=== PATIENT | female | born 1965 | race Caucasian/White ===

== ENCOUNTER 2023-01-05 10:15 | Outpatient (RCR) | payer OTHER, BC, SELFPAY | END 2023-05-05 23:59 | disposition home or self-care (01) | PROVIDERS: Visit Provider Student in an Organized Health Care Education/Training Program | DX: M77.11 Lateral epicondylitis, right elbow (principal); Z51.89 Encounter for other specified aftercare | CPT/HCPCS: 97033; 97035; 97110; 97140; 97165; 97535; X5282 ==

== ENCOUNTER 2023-09-10 09:59 | Outpatient (CLI) | payer BC, SELFPAY ==
--- NOTE | 2023-09-10 10:15 | CRLHL7_ITS ---
For Patients: As a result of the Century Cures Act, medical imaging exams and procedure reports are released immediately into your electronic medical record. You may view this report before your referring provider. If you have questions, please contact your health care provider. ULTRASOUND-GUIDED LEFT BREAST BIOPSY AND POST-BIOPSY DIGITAL MAMMOGRAM FOR BIOPSY MARKER PLACEMENT CLINICAL HISTORY: Indeterminate nodule. COMPARISON STUDIES: 09/01/2023 TECHNIQUE: Real-time ultrasound with image documentation was used for targeting the breast lesion. Core biopsy specimens were obtained using an automated gun with an 18-gauge biopsy needle. Post-biopsy CC and ML digital mammograms were obtained to document position of the biopsy marker. CONSENT and TIME OUT: The procedure, risks, and alternatives were explained to the patient and a consent was signed. [place] Protocol was followed including pre-procedure verification that relevant information/documentation was available, reviewed and properly matched to the patient; consent accurate and complete; and equipment and supplies available. Time Out was conducted just prior to starting procedure to verify the four required elements: patient identity, correct side/site marked (if applicable), procedure, relevant images/results properly labeled and displayed (if applicable). PROCEDURE: The patient was positioned supine on the ultrasound table. The breast was prepped with ChloraPrep. 6 cc of 1% lidocaine used for local anesthesia. Core samples were obtained. A sterile metal biopsy clip was placed percutaneously to giselle the lesion position within the breast. The specimens were placed in 10% formalin and sent to the pathology department. Pressure was held on the biopsy site until all bleeding subsided. The skin incision was closed with Steri-Strips. An ice pack was positioned over the biopsy site. Post-biopsy instructions were reviewed with the patient, and a written copy was given to her. LATERALITY: LEFT breast LESION: Circumscribed lobular hypoechoic solid nodule measuring 9 x 7 x 8 mm at 5 o`clock, 9 cm from the nipple. SUSPICION FOR MALIGNANCY: Intermediate NUMBER OF SAMPLES: 5 BIOPSY CLIP SHAPE: Oval-shaped PROXIMITY OF CLIP TO TARGET: Within the lesion IMPRESSION: Ultrasound-guided LEFT breast biopsy. When the pathology report is available, an addendum to this report will be made. ACR not applicable. Dictated by Filipe Harper MD @ 09/10/2023 11:34:55 AM [email or web address] RD/Dictated by: Filipe Harper MD @ 09/10/2023 11:34:00 AM (Electronically Signed)
--- NOTE | 2023-09-10 10:45 | CRLHL7_ITS ---
For Patients: As a result of the Century Cures Act, medical imaging exams and procedure reports are released immediately into your electronic medical record. You may view this report before your referring provider. If you have questions, please contact your health care provider. PLEASE SEE LEFT BREAST ULTRASOUND-GUIDED BIOPSY OF SAME DAY. [email or web address] RD/Dictated by: Filipe Harper MD @ 09/10/2023 11:34:00 AM (Electronically Signed)
== END 2023-09-10 10:00 | disposition home or self-care (01) ==
LOC: US 10:01
PROVIDERS: Visit Provider Family Medicine
DX: N63.20 Unspecified lump in the left breast, unspecified quadrant (principal); C50.912 Malignant neoplasm of unspecified site of left female breast; R92.8 Other abnormal and inconclusive findings on diagnostic imaging of breast
CPT/HCPCS: 19083; 77065; 88305; 88341; 88342; 88360; A4648; A4649

== ENCOUNTER 2023-10-12 06:42 | Day surgery (SDC) | payer BC, SELFPAY ==
[2023-10-12] VITALS (13 sets, daily range): BP systolic 124–153; BP diastolic 80–100; PULSE 69–80; RESP 10–16; TEMP 36.3–37.6; O2SAT 92–97; BMI 26.6
--- OUTSIDE RECORDS SUMMARY | 2023-10-12 06:46 | XMS_ITS | Clinical Summary ---
Author Name Unknown Organization [facility] Address [place], [place] [address] Care Team Providers Care Master Rigger Name Role Phone Yane Cline Primary Care Provider [phone] Allergies Active Allergy Reactions Criticality Noted Date Comments Chlorpheniramine-Phenylpropan Runny Nose,Itching 03/24/2019 Mirabegron Angioedema High 10/12/2018 Medications Medication Sig Dispensed Refills Start Date End Date Status fluticasone (50 mcg per actuation) nasal solution (FLONASE)Indications: Seasonal allergies Inhale 1 [place] into both nostrils once daily. Non-alcohol based 1 Bottle 3 04/03/2015 Active cetirizine (ZYRTEC) 10 mg tabletIndications:Sea tee allergic rhinitis, unspecified chronicity, unspecified trigger Take 1 tablet by mouth once daily. 90 tablet 1 10/13/2017 Active erythromycin ophthalmic ointment 0.5% 0 06/16/2022 Active Xiidra 5 % dpet 0 06/17/2022 Active chlorthalidone (HYGROTON) 50 mg tabletIndications:HTN (hypertension) Take 1 Tablet (50 mg) by mouth once daily. 90 Tablet 3 06/25/2023 Active metroNIDAZOLE (METROGEL) 0.75 % gelIndications:Rosace a Apply topically to affected area(s) two times daily. 45 g 3 06/25/2023 Active sulfacetamide, acne, 10 % suspIndications:Rosac ea Apply topically to affected area(s) at bedtime. 118 mL 5 06/25/2023 Active carbamide peroxide (DEBROX) 6.5 % otic solutionIndications:B ilateral impacted cerumen Place 5 Drops into both ears two times daily. 15 mL 0 06/25/2023 Active potassium chloride (K-TAB) 20 mEq extended-release tabletIndications:Hyp okalemia Take 1 Tablet (20 mEq) by mouth once daily with a meal. 90 Tablet 3 06/29/2023 Active albuterol HFA (PRO-AIR; VENTOLIN; PROVENTIL) 90 mcg/actuation inhalerIndications:Mi ld intermittent asthma without complication Inhale 1-2 Puffs by mouth every 4 hours if needed for Shortness Of Breath. 18 g 11 08/25/2023 Active Active Problems Problem Noted Date Diagnosed Date Prediabetes 06/29/2023 Mixed hyperlipidemia 06/29/2023 Adenomatous colon polyp 02/21/2018 Overview: Colonoscopy 02/2018 polyp, repeat in 5 years Colonoscopy 05/2023 TA, repeat in 7 years Mixed urge and stress incontinence 09/18/2015 Allergic rhinitis, cause unspecified 06/22/2006 Unspecified asthma(493.90) 06/22/2006 Rosacea 06/22/2006 Vitamin D deficiency Urinary, incontinence, stress female Hypertension Anemia Iron deficiency Uterine fibroid Overview: 12 cm Dry eyes Encounters Date Type Department Care Team Description 10/04/2023 11:10 AM TELEVISION NEWS VIDEO EDITOR Preop Visit [facility] [address] [place] [address] Yane Cline PA Preoperative Exam (Dr[facility]- wire localized left lumpectomy-10/12/23) 10/04/2023 Travel 09/20/2023 12:00 PM TELEVISION NEWS VIDEO EDITOR Office Visit [facility] [address] [facility] [place] [address] Maryam Grant MD Consult (Left breast cancer) 09/20/2023 Travel 09/15/2023 Telephone [facility] [address] [facility] [place] [address] Adela Lucio, DO Follow Up 09/10/2023 Orders Only [facility] Scanner 1 scan: (1-Ord) [facility], US-GUIDED LT BREAST BIOPSY, 09/10/2023 09/10/2023 Lab Requisition L [facility] [phone] Unknown, Doctor 09/01/2023 3:15 PM TELEVISION NEWS VIDEO EDITOR Ancillary Procedure [facility] [address] [facility] [place] [address] 09/01/2023 2:30 PM TELEVISION NEWS VIDEO EDITOR Ancillary Procedure [address] [place] [address] 09/01/2023 Ancillary Orders [address] [address] Naveed Adela Harmony, DO 09/01/2023 Ancillary Orders [address] [address] Sir Lucioi Harmony, DO 09/01/2023 Travel 08/25/[address] [address] Sir Lucioi Harmony, DO Medication Management (albuterol HFA (PRO-AIR; VENTOLIN; PROVENTIL) 90 mcg/actuation inhaler) 08/20/2023 11:20 AM TELEVISION NEWS VIDEO EDITOR Ancillary Procedure [address] [address] 08/20/2023 Travel 08/19/[address] [address] Adela Lucio, DO Refill Request (Albuterol Hfa) 07/28/2023 1:40 PM TELEVISION NEWS VIDEO EDITOR Orders Only [address] [address] Lab, [facility] 07/28/2023 Travel 07/28/[address] [address] Yane Cline PA Form from Last 3 Months Immunizations Name Administration Dates Next Due COVID-19 vaccine (Pfizer-Bio NTech 30mcg/0.3mL) 12YO+ BIVALENT PF, MDV 06/12/2022 Hepatitis A (Adult) 11/25/2017 Hepatitis B (Adult) 04/12/1995,11/03/1994,1994 Influenza, IIV3 (Age >=3 years) 05/16/20 14,06/16/2013,05/18/2012,2010,06/18/2010,06/13/1998,06/12/1997,1 Influenza, IIV4 06/25/2023, 2,06/11/2021,2016 Influenza, IIV4 (=>6mos) MDV 05/15/2020, 05/17/2019,05/19/2018,2016,05/22/2015 MMR 12/24/1994,10/06/1994 Measles 1965 Pneumococcal Conj 20-valent (Prevnar 20) 06/12/2022 Td (Age >=7 Years) 09/06/1990 Td, Preservative Free (age > = 7 Years) 08/02/2007 Tdap 05/29/2014 Typhoid (injectable) 11/25/2017 Zoster (Shingrix-RZV, recombinant) 06/27/2019, Family History Medical History Relation Name Comments Good Health Brother Other Father Alzheimers Cancer Mother Bladder and luan g cancer (smoking) Good Health Sister Cancer-breast No Family History Cancer-ovarian No Family History Relation Name Status Comments Brother Alive Father htn, atrial fib Maternal Grandfather Alive Maternal Grandmother Alive Maternal Uncle ca Mother lung ca, bladde r ca Paternal Grandfather Alzheim er's Paternal Grandmother Alive Sister Alive Social History Tobacco Use Types Packs/Day Years Used Date Smoking Tobacco: Former Cigarettes 0.3 20 1 09/22/1986 - 07/23/2007 Smokeless Tobacco: Never Tobacco Cessation:Counseling Given: Yes Comments:No exposure Alcohol Use Standard Drinks/Week Comments Yes 2 (1 standard drink = 0.6 oz pur e alcohol) weekends PHQ-2 Answer Date Recorded PHQ-2 TOTAL SCORE 0 06/25/2023 Social Connections Answer Date Recorded Frequency of Communication with Friends and Fami ly Not on file 09/06/2021 Financial Resource Strain Answer Date R ecorded Difficulty of Paying Living Expenses Not on file 09/06/2021 Difficulty of Paying Living Expenses Not on file 09/06/2021 Sex and Gender Information Value Date Recorded Sex Assigned at Not on file Gender Identity Not on file Sexual Orientation Not on file Obstetrics History Para Term AB IAB SAB Ectopic Multiple Livin g Live Births 1 0 0 0 0 0 0 0 0 2 0 Date Outcome GA Total Labor Labor/2nd/3rd Weight Sex Delivery Anes PTL Harmony A1 A5 Name Cl in 04/11 Vag Comments:twins Last Filed Vital Signs Vital Sign Reading Time Taken Comments Blood Pressure 132/92 10/04/2023 11:08 AM TELEVISION NEWS VIDEO EDITOR Pulse 83 10/04/2023 11:08 AM TELEVISION NEWS VIDEO EDITOR Temperature 36.9 ??C (98.5 ??F) 06/25/2023 2:24 PM CD T Respiratory Rate 16 05/06/2023 12:32 PM CDT Oxygen Saturation 98% 10/04/2023 11:08 AM TELEVISION NEWS VIDEO EDITOR Inhaled Oxygen Concentration - - Weight 66.2 kg (146 lb) 10/04/2023 11:08 AM TELEVISION NEWS VIDEO EDITOR Height 159 cm (5' 2.6) 10/04/2023 11:08 AM TELEVISION NEWS VIDEO EDITOR Body Mass Index 26.2 10/04/2023 11:08 AM TELEVISION NEWS VIDEO EDITOR Plan of Treatment Health Maintenance Due Date Last Done Comments COVID-19 vaccine series ( season) 2023 06/12/2022, 09/15/2021, 01/22/2021, Additional history exists Tetanus booster 05/29/2024 05/29/2014, 07/08, 09/06/1990 Depression screening for age 12+ 06/28/2024 06/28/2023, 06/25/2023, 06/12/2022, Additional history exists Mammogram for age 45-75 09/01/2024 09/01/20, 08/20/2023, 08/12/2022, Additional history exists BMI (ht and wt on same day) for age 18+ 10/04/2024 10/04/2023, 06/25/2023, 06/12/2022, Additional history exists Pap test for age 21-65 05/29/2025 , 05/29/2020, 05/05/2017, Additional history exists Lipids for age 45-75 06/25/2028 06/25/2023, 06/12/2022, 06/11/2021, Additional history exists Colonoscopy through age 75 05/07/203005/07, 05/06/2023, 02/18/2018, Additional history exists Hepatitis C screening for ag e 18-79 Completed 03/15/2014 Tdap Completed 05/29/2014 Zoster (shingles) series for age 50+ Completed 06/27/2019, 03/24/2019 Pneumococcal series for age 6-64 Completed 06/12/20 HIV for age 15-65 Completed 06/25/2023 Influenza for age 50-64 Completed 06/25/20, 06/12/2022, 06/11/2021, Additional history exists Procedures Procedure Name Priority Date/Time Associated Diagnosis Comments BASIC METABOLIC PANEL Routine 10/04/2023 11:45 AM TELEVISION NEWS VIDEO EDITOR HTN (hypertension) LAB TRACKING EVENT Routine 09/10/2023 10 :40 AM TELEVISION NEWS VIDEO EDITOR PATH BREAST CORE BIOPSY Routine 09/10/2023 10:40 AM TELEVISION NEWS VIDEO EDITOR SCAN-OPERATIVE/PROCE DURE REPORT 09/10/2023 12:00 AM TELEVISION NEWS VIDEO EDITOR US BREAST UNILATERAL LEFT LIMITED NGUYEN 09/01/2023 2:52 PM TELEVISION NEWS VIDEO EDITOR Abnormal mammogram XR MAMMO RUBÉN UNI ADDL VIEWS LEFT NGUYEN 09/01/2023 2:44 PM TELEVISION NEWS VIDEO EDITOR Abnormal mammogram XR MAMMO BILAT SCREENING Routine 08/20/2023 11:30 AM TELEVISION NEWS VIDEO EDITOR Visit for screening mammogram BASIC METABOLIC PANEL Routine 07/28/2023 1:40 PM TELEVISION NEWS VIDEO EDITOR Hypokalemia from Last 3 Months Results * (ABNORMAL) BASIC METABOLIC PANEL (10/04/2023 11:45 AM TELEVISION NEWS VIDEO EDITOR) Only the most recent of2 resultswithin the time period is included. SODIUM 138 136 - 145 mmol/L 10/04/2023 10:04 PM TELEVISION NEWS VIDEO EDITOR [facility] POTASSIUM 3.4(L) 3.5 - 5.1 mmol/L 10/04/2023 10:04 PM [facility] CHLORIDE 94(L) 98 - 107 mmol/L 10/04/2023 10:04 PM [facility] CO2,TOTAL 32(H) 22 - 29 mmol/L 10/04/2023 10:04 PM [facility] ANION GAP 12 5 - 18 10/04/2023 10:04 PM [facility] GLUCOSE 101(H) 70 - 99 mg/dL 10/04/2023 10:04 PM [facility] CALCIUM 9.9 8.6 - 10.0 mg/dL 10/04/2023 10:04 PM [facility] BUN 11 6 - 20 mg/dL 10/04/2023 10:04 PM [facility] CREATININE 0.72 0.50 - 0.90 mg/dL 10/04/2023 10:04 PM [facility] BUN/CREAT RATIO 15 10 - 20 10:04 PM [facility] eGFR >90 >90 mL/min/1.7 3m2 10/04/2023 10:04 PM [facility] Comment:As of 2021, eG FR is calculated by the CKD-EPI creatinine equation without race adjustment. ??eGFR can be influenced by muscle mass, exercise, and diet. ??The reported eGFR is an estimation only and is only applicable if the renal function is stable. Blood BLOOD SPECIMEN / Unknown Venipuncture / Unknown 10/04/2023 11:45 AM TELEVISION NEWS VIDEO EDITOR 10/04/2023 11:47 AM [facility] Yane CALVO [facility]MISTRY [facility] [address] [place] [address], * LAB TRACKING EVENT (09/10/2023 10:40 AM [facility]) Other (Other) Client Collect / Unknown 09/10/2023 10:40 AM TELEVISION NEWS VIDEO EDITOR 09/10/2023 9:39 PM TELEVISION NEWS VIDEO EDITOR Doctor Unknown LAB BILL ONLY [facility] [address] [place] [address], * PATH BREAST CORE BIOPSY (09/10/2023 10:40 AM TELEVISION NEWS VIDEO EDITOR) Case Report Pathology Report ?Case: [id number] ? Authorizing Provider: ??Unknown, Doctor ?Collected: ? 09/10/2023 1040 ? Ordering Location: ? [facility] ?Received: ?09/11/2023 0456 ? Pathologist: ? Alena Cook MD ? Specimen: ?Left Breast ? 09/13/2023 2:07 PM TELEVISION NEWS VIDEO EDITOR [facility] Final Diagnosis A) LEFT BREAST, 5:00, 9 CM FROM NIPPLE, ULTRASOUND-GUIDED CORE BIOPSY: 1. Favor encapsulated papillary carcinoma (see comment) ?? a. Nuclear grade: 2 of 3 ?? b. Calcifications: Are not present ?Are not present in surrounding benign tissue ?? c. Necrosis: Is not present 2. Breast Ancillary Testing: ?a. 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 Microscopically, EPC tumors most often consist of papillary carcinoma within a cystic space but may be composed of an aggregate of close nodules. These tumors have a rounded, pushing border and are typically surrounded by a fibrous capsule of varying thickness. Myoepithelial cells are absent or incomplete at the periphery of these lesions (as seen in this case, characterized by absence of staining for immunostains SMMS and P63). EPC in the absence of conventional stromal invasion (which is not identified in the current core biopsy) is a self-confined indolent tumor with a prognosis similar to that of carcinoma in situ when treated with adequate local therapy. Lymph node metastases are very rare, even in tumors with an associated invasive component. Based on current NCCN guidelines for in situ carcinoma (DCIS), sentinel lymph node biopsy may be considered. This is an image-guided breast biopsy. The pathologic findings should be correlated with radiologic and clinical findings prior to treatment decisions. Case seen in consultation with Dr. Shepard. References: 1. DANITA Mota, et al. Intracystic papillary carcinoma of the breast: An in situ or invasive tumor? Results of immunohistochemical analysis and clinical follow-up. Am J Surg Pathol. 2011 Sep;35(1): 1-14. PMID: [id number] 2. Rober Landeros, et al. Can [place] Lymph Node Biopsy Be Spared in Papillary Carcinoma of the Breast? Clin Breast Cancer. 2017 Dec;17(2):127-133. PMID: [id number] 3. RUBINA Bautista, et al. Papillary neoplasms of the breast-reviewing the spectrum. Mod Pathol. 2020Sep 23. PMID: [id number] 09/13/2023 2:07 PM [facility] Clinical Information INDICATION: Left breast mass LESION DESCRIPTION: Round circumscribed solid hypoechoic mass SIZE: 1 x 0.8 x 0.8 cm LOCATION: 5:00 9 cm from nipple 09/13/2023 2:07 PM [facility] Gross Description A) Label: ??Patient's name and left breast Description: 4 fibrofatty core biopsies Size: 0.3-0.8 cm in length by 0.2 cm in diameter Ink color: Blue The specimen is submitted in toto in one cassette. Cold ischemic time: Less than 60 minutes, meets current ASCO/CAP guidelines. ?? The specimen was fixed in formalin for a minimum of 6 hours and not longer than 72 hours. TRB 09/11/2023 09/13/2023 2:07 PM [facility] Microscopic Description The final diagnosis is based on microscopic examination of appropriate sections of all specimens. A) The presence of blue ink is confirmed on tissue sections. IHC is performed on block A1 and supports the above diagnosis Stain: ? Result: p63 ?Lack of myoepithelial cells around tumor SMMS ? Lack of myoepithelial cells around tumor CK5/6 ?Negative ER ? Positive, diffuse strong (see synoptic form for quantitative analysis) 09/13/2023 2:07 PM [facility] SYNOPTIC REPORTING Breast Biomarker Reporting Template BREAST: BIOMARKER REPORTING TEMPLATE - A Protocol posted: 11/25/2022 ?? Test(s) Performed: ? Estrogen Receptor (ER) Status: ?Positive (greater than 10% of cells demonstrate nuclear positivity) ? Percentage of Cells with Nuclear Positivity: ?91-100% ? Average Intensity of Staining: ?Strong ? Test Type: ?Laboratory-develope d test ? Primary Antibody: ?SP1 ? Scoring System: ?Lyssa ? Proportion Score: ?5 ? Intensity Score: ?3 ? Total Lyssa Score: ?8 ?? Cold Ischemia and Fixation Times: ?Meet requirements specified in latest version of the ASCO / CAP Guidelines ?? Testing Performed on Block Number(s): ?A1 METHODS ?? Fixative: ?Formalin ?? Image Analysis: ?Not performed ?? Comment(s): ?ER analysis was performed by manual morphometry for the Lyssa Scoring System 09/13/2023 2:07 PM TELEVISION NEWS VIDEO EDITOR [facility] Additional Information Interpreted at [facility] - [address] [facility] [address] [address] 09/13/2023 2:07 PM TELEVISION NEWS VIDEO EDITOR [facility] Other (Left Breast) 09/10/2023 10:40 AM TELEVISION NEWS VIDEO EDITOR 09/11/2023 4:56 AM TELEVISION NEWS VIDEO EDITOR Doctor Unknown PATHOLOGY[facility]CYTOLOGY [facility] [address] [place] [address], * SCAN-OPERATIVE/PROCEDURE REPORT (09/10/2023 12:00 AM TELEVISION NEWS VIDEO EDITOR) Scanner OTHER * US BREAST UNILATERAL LEFT LIMITED (09/01/2023 2:52 PM TELEVISION NEWS VIDEO EDITOR) Anatomical Region Laterality Modality BREASTS, Breast Left, Breast Right Left Ultrasound Narrative 09/01/2023 3:43 PM TELEVISION NEWS VIDEO EDITOR As a result of the Century Cures Act, medical imaging exams and procedure reports are released immediately into your electronic medical record. ??You may view this report before your referring provider. ??If you have questions, please contact your health care provider. LEFT BREAST ULTRASOUND 09/01/2023 PLEASE SEE [id number] FOR LEFT DIGITAL ADDITIONAL VIEWS MAMMOGRAM OF SAME DAY. Adela Harmony Shaqra DO US * XR MAMMO RUBÉN UNI ADDL VIEWS LEFT (09/01/2023 2:44 PM TELEVISION NEWS VIDEO EDITOR) Anatomical Region Laterality Modality BREASTS, Breast Left Mammography 09/01/2023 2:58 PM TELEVISION NEWS VIDEO EDITOR Impressions 09/01/2023 3:43 PM TELEVISION NEWS VIDEO EDITOR Suspicious 1 cm mass LEFT breast 5 o'clock 9 cm from the nipple. RECOMMENDATIONS: Ultrasound-guided core needle biopsy. BI-RADS Category 4: Suspicious Results and recommendations discussed with the patient. Dictated by: Filipe Harper MD @09/01/2023 2:58:09 PM/aliyah PATIENTS: You will also receive a letter with your examination results in an easy to read format. ??If you have questions about your results, please contact your referring provider. Narrative 09/01/2023 3:43 PM TELEVISION NEWS VIDEO EDITOR As a result of the Cures Act, medical imaging exams and procedure reports are released immediately into your electronic medical record. ??You may view this report before your referring provider. ??If you have questions, please contact your health care provider. LEFT BREAST MAMMOGRAM DIGITAL ADDITIONAL VIEWS WITH TOMOSYNTHESIS 09/01/2023 ?? LEFT BREAST ULTRASOUND 09/01/2023 CLINICAL HISTORY: LEFT breast mass/asymmetry. COMPARISON: 08/20/2023, 08/12/2022. TECHNIQUE: Digital LEFT mammogram in 2 projections. ??Tomosynthesis was used. Real-time ultrasound imaging of LEFT breast with imaging documentation. BREAST COMPOSITION: There are scattered areas of fibroglandular density. FINDINGS: 3D spot compression CC/MLO LEFT breast mammogram images submitted. Persistent nodular density inferior LEFT breast. No architectural distortion or suspicious calcifications. Targeted LEFT breast ultrasound performed. A 5 o'clock 9 cm from the nipple there is a lobular hypoechoic solid mass measuring 1.0 x 0.8 x 0.8 cm at anterior depth. Adela Harmony Shaqra DO MAMMO * XR MAMMO BILAT SCREENING (08/20/2023 11:30 AM TELEVISION NEWS VIDEO EDITOR) Anatomical Region Laterality Modality BREASTS, Breast Left, Breast Right Bilateral Mammography 08/20/2023 3:13 PM TELEVISION NEWS VIDEO EDITOR Impressions 08/20/2023 3:43 PM TELEVISION NEWS VIDEO EDITOR LEFT breast asymmetry/mass. RECOMMENDATIONS: Additional mammographic views of the LEFT breast including 3D spot compression CC/MLO. LEFT breast ultrasound may also be required. BI-RADS Category 0: Incomplete: Need Additional Imaging Evaluation and/or Prior Mammograms for Comparison A member of the breast health care team will contact the patient to schedule the required additional imaging appointment(s). Dictated by: Filipe Harper MD @08/20/2023 3:13:48 PM / [place] PATIENTS: You will also receive a letter with your examination results in an easy to read format. ??If you have questions about your results, please contact your referring provider. Narrative 08/20/2023 3:43 PM TELEVISION NEWS VIDEO EDITOR For Patients: As a result of the Cures Act, medical imaging exams and procedure reports are released immediately into your electronic medical record. ??You may view this report before your referring provider. ?? If you have questions, please contact your health care provider. BILATERAL DIGITAL SCREENING MAMMOGRAM WITH COMPUTER-AIDED DETECTION, 08/20/2023 CLINICAL HISTORY: Routine screening exam. COMPARISON: 08/12/2022, 08/07/2021, 06/19/2028, 04/11/2019. TECHNIQUE: Digital mammogram in CC and MLO projections including computer-aided detection (CAD). BREAST COMPOSITION: There are areas of scattered fibroglandular density. FINDINGS: RIGHT Breast: No suspicious findings. LEFT Breast: Nodular density within the lower LEFT breast 9 cm from the nipple. Adela Lucio DO MAMMO from Last 3 Months Advance Directives Latest Code Status on File Code Status Date Activated Date Inactivated Comments Full Code 06/05/2014 11:41 AM 06/06/2014 2:15 PM Code Status History Code Status Date Activated Date Inactivated Comments Full Code 06/05/2014 6:36 AM 06/05/2014 11:41 AM Care Teams Master Rigger Relationship Specialty Start Date End Date Yane Cline [place] [address] [place] [address] PCP - General Physician Putter In 09/16/23
[2023-10-12] MEDS: LACTATED RINGERS 1000 ML 1,000 ML 100 ML IV ×2 (07:22→09:24)
--- NOTE | 2023-10-12 07:43 | SUR.PREOP ---
[facility] HERE. LIDOCAINE 2ml VIAL TAKEN FROM [facility]. ([id number])
--- NOTE | 2023-10-12 08:00 | CRLHL7_ITS ---
For Patients: As a result of the Century Cures Act, medical imaging exams and procedure reports are released immediately into your electronic medical record. You may view this report before your referring provider. If you have questions, please contact your health care provider. SENTINEL LYMPH NODE LOCALIZATION INJECTION CLINICAL HISTORY: Left breast cancer LATERALITY: Left breast TECHNIQUE: With the patient supine, the periareolar left breast was cleansed with alcohol. 1 cc 1 percent xylocaine was injected intradermal in the upper outer periareolar region of the left breast with a 25-gauge needle. Next, 0.79 millicuries of technetium Tc 99m sulfur colloid in a volume of 1 cc was injected intradermal in the upper outer periareolar breast with a 25-gauge needle. The patient tolerated the procedure well and there were no immediate complications. IMPRESSION: Injection for sentinel lymph node of the left breast. Dictated by Filipe Harper MD @ 10/12/2023 9:04:14 AM (Electronically Signed)
--- NOTE | 2023-10-12 08:15 | CRLHL7_ITS ---
For Patients: As a result of the Cures Act, medical imaging exams and procedure reports are released immediately into your electronic medical record. You may view this report before your referring provider. If you have questions, please contact your health care provider. BREAST WIRE LOCALIZATION USING ULTRASOUND GUIDANCE CLINICAL HISTORY: LEFT breast cancer. LATERALITY: LEFT breast. LESION: Hypoechoic solid nodule LEFT breast 5 o`clock 9 cm from the nipple measuring 1 cm. LOCALIZATION WIRE: [place] hookwire. TECHNIQUE: The localization wire was placed using real-time ultrasound guidance with image documentation. Cranial-caudal and medial-lateral digital mammograms were obtained after localization wire placement. CONSENT and TIME OUT: The procedure, risks, and alternatives were explained to the patient and a consent was signed. [place] Protocol was followed including pre-procedure verification that relevant information/documentation was available, reviewed and properly matched to the patient; consent accurate and complete; and equipment and supplies available. Time Out was conducted just prior to starting procedure to verify the four required elements: patient identity, correct side/site marked (if applicable), procedure, relevant images/results properly labeled and displayed (if applicable). PROCEDURE: The skin was prepped with ChloraPrep and 5 cc of 1% lidocaine was injected for local anesthesia. The localization wire was placed within or near the targeted breast lesion using ultrasound guidance. The patient tolerated the procedure well. PROXIMITY OF WIRE TO LESION: The wire is located within the lesion. IMPRESSION: Successful breast wire localization. ACR not applicable Dictated by Filipe Harper MD @ 10/12/2023 9:05:27 AM jj/Dictated by: Filipe Harper MD @ 10/12/2023 9:05:00 AM (Electronically Signed)
--- NOTE | 2023-10-12 08:52 | W.PM.H&PU ---
History & Physical Update History & Physical Update H&P Reviewed and patient assessed: No changes noted
--- NOTE | 2023-10-12 08:55 | PM.GSPRC ---
Operative Note Date of procedure: 10/12/23 Pre-op diagnosis: 1. Left breast encapsulated papillary carcinoma. Post-op diagnosis: Same Type of Procedure: 1. Wire localized left lumpectomy. 2. Left sentinel lymph node biopsy. Indications: 58-year-old female was seen in clinic with a newly diagnosed biopsy-proven left breast encapsulated papillary carcinoma. On her routine mammogram patient was noted to have a suspicious density in the left breast. An ultrasound was obtained that showed 1 x 0.8 cm lobular hypoechoic solid mass at 5:00 9 cm from the nipple in the left breast. Core needle biopsy came back as encapsulated papillary carcinoma, grade 2 of 3 with no calcifications and no necrosis, ER positive. Given patient's clinical history, surgical options were discussed with the patient. Patient desired to proceed with left lumpectomy and left sentinel lymph node biopsy. The procedure was discussed in detail. The risks associated procedure including infection, bleeding, the need for additional procedures, lymphedema, and seroma were all discussed with the patient, and she agreed to proceed. Procedure Description: After discussing the risks and benefits of the procedure, the patient signed informed consent.? The operative site was marked and the patient was brought to the operating room and placed on the operating table in supine position.? Care was taken to pad the patient's pressure points.?? The patient was then intubated by anesthesia.?? The operative site was then prepped and draped in the usual sterile fashion.? A time-out was then performed. Pre-operative mammographic films taken after wire localization were reviewed. The mixture of Lidocaine and Marcaine was used as local anesthetic and was injected at the site of the incision. The lumpectomy was performed by making a? horizontal incision in the inframammary fold at 5:00 o'clock.? Subcutaneous skin flaps were developed until the wire was encountered.? The wire was pulled into the surgical field. The breast tissue around the wire was then excised in a cylinder like fashion following the course of the wire using cautery.? This was done with frequent palpation of the wire.? The specimen was then excised making sure that the wire was still in the specimen. Margins of the specimen were inked and the specimen was then sent to mammography first to confirm presence of the wire and the clip and to pathology afterwards for gross margins. Pathologist reviewed the specimen and the tumor and the biopsy clip was identified in the surgical specimen.? All margins were grossly negative with the closest medial margin of 2 mm. I then proceeded with the left sentinel lymph node biopsy. 1 hour prior to the procedure radioactive tracer was Personally injected by me near the left nipple. At the beginning of procedure Three ml (milliliters) of Lymphazurin blue was also personally injected by me near The left nipple for sentinel lymph node identification. Now when the lumpectomy specimen was sent to pathology, a Sonia counter was brought onto the field in the left axilla to identify the best area for the sentinel node biopsy. An oblique skin incision was then made over that area. Subcutaneous tissues were dissected with electrocautery. A green lymph node was identified and appeared to have radioactive signal [id number]. This was excised with cautery. This was sent to pathology as the sentinel node #1. Another lymph node was excised with cautery. This lymph node had a count of 999. This was sent to pathology as sentinel lymph node #2. Axillary hank tissue was examined again with the Sonia counter and and no additional significant signal was identified. Hemostasis was achieved with cautery. This incision was then closed in layers with 3-0 Vicryl interrupted stitches to re-approximate subcutaneous layer and 4-0 Monocryl subcuticular stitch to close skin. When pathology results were available with negative margins, we proceeded with incisional closure. Vascular clips were placed in the lumpectomy cavity to giselle the margins of the lumpectomy cavity. Surgical field was examined for bleeding and any bleeding was controlled with electrocautery. Breast tissue was mobilized with cautery for tension free closure and re-approximated with interrupted 2-0 Vicryl stitches. Interrupted subdermal stitches were placed with 3-0 Vicryl as well and skin was closed with 4-0 Monocryl subcuticular stitch. Steristrips and sterile dressings were applied Over both incisions. At the end of the operation, all sponge, instrument, and needle counts were correct. Patient tolerated the procedure well and was transferred to same-day surgery in stable condition. Findings: left breast cancer removed with negative margins. Two sentinel lymph node were identified and removed and sent to pathology for permanent section. Anesthesia: GETA Surgeon: Maryam Grant MD Estimated blood loss (mL): 5 Additional Specimen Information: 1. Left lumpectomy. 2. Left sentinel lymph node #1. 3. Left sentinel lymph node #2. Condition: stable Disposition: PACU [place] Node Biopsy for Breast Cancer Operation Performed with Curative Intent: Yes Tracers used to Identify sentinel nodes in the upfront surgery (non-neoadjuvant) setting: Dye and Radioactive Tracer All nodes (colored or non-colored) present at the end of a dye filled lymphatic channel were removed: Yes All significantly radioactive nodes were removed: Yes All palpably suspicious nodes were removed: Yes Biopsy proven positive nodes marked with clips prior to chemotherapy were identified and removed: Not Applicable
--- NOTE | 2023-10-12 09:00 | CRLHL7_ITS ---
For Patients: As a result of the Cures Act, medical imaging exams and procedure reports are released immediately into your electronic medical record. You may view this report before your referring provider. If you have questions, please contact your health care provider. PLEASE SEE LEFT BREAST WIRE LOCALIZATION PERFORMED SAME DAY CRL:julia dumont/Dictated by: Filipe Harper MD @ 10/12/2023 9:05:00 AM (Electronically Signed)
--- NOTE | 2023-10-12 09:00 | CRLHL7_ITS ---
For Patients: As a result of the Cures Act, medical imaging exams and procedure reports are released immediately into your electronic medical record. You may view this report before your referring provider. If you have questions, please contact your health care provider. LEFT BREAST SPECIMEN RADIOGRAPH CLINICAL HISTORY: Breast cancer. COMPARISON: 09/01/2023. FINDINGS: Two-view specimen film submitted. The specimen contains the biopsied mass, the biopsy clip and localization wire. IMPRESSION: Specimen contains the clip, mass and wire. ACR not applicable Dictated by Filipe Harper MD @ 10/12/2023 10:29:23 AM jj/Dictated by: Filipe Harper MD @ 10/12/2023 10:29:00 AM (Electronically Signed)
[2023-10-12] MEDS: CEFAZOLIN 2 GM INJ IVP (09:24)
[2023-10-12] MEDS: ISOSULFAN BLUE 5 ML VIAL 3 ML INJECTION (09:25)
[2023-10-12] MEDS: BUPIVACAINE 0.25% 30 ML 11 ML INJECTION (09:33)
--- NOTE | 2023-10-12 10:45 | W.ANESCHARGE ---
Anesthesia Charges Start Date/Time Anesthesia Start Date: 10/12/23 Anesthesia Start Time: 09:09 Stop Date/Time Anesthesia Stop Date: 10/12/23 Anesthesia Stop Time: 10:46
== END 2023-10-12 12:26 | disposition home or self-care (01) ==
PROVIDERS: PCP Physician Assistant; Visit Provider Surgery
PROC: (CPT 19125; principal; 2023-10-12 09:00)
PROC: (CPT 19125; 2023-10-12 09:00)
PROC: (CPT 19125; 2023-10-12 09:00)
DX: C50.512 Malignant neoplasm of lower-outer quadrant of left female breast (principal); Z17.0 Estrogen receptor positive status [ER+]
CPT/HCPCS: 19125; 38500; 00400; 19285; 38792; 77065; 88307; 88360; 88361; A9541; C1769; J0665; J0690; J1100; J1630; J1885; J2405; J2704; J3010; J3475; J3490; J7120

== ENCOUNTER 2023-11-09 13:27 | Outpatient (CLI) | payer BC, SELFPAY ==
--- NOTE | 2023-11-09 13:30 | XR_ITS ---
Patient: BRIAN CHAU Facility:?[facility] Patient ID:?[id number] Site Patient ID:?[id number]. Site :?1965 Study:?DEXA-Bone Density DEXA - Spine/Hips-11/09/2023 2:06:27 PM Ordering Physician:DEB Final Report: DXA BONE MINERAL DENSITY STUDY Current height (in): 63.0. Weight (lb): 149.0. Menopause age: 55. Ethnicity: White. Reason for exam: Screening. Breast cancer. 1. Have you had a previous hip or vertebral fracture? No. 2. Have you had any fractures during your adult life which did not result from significant trauma (e.g., auto accident)? No. 3. Did either of your parents have a hip fracture? No. 4. Do you smoke? No. 5. Have you ever taken Glucocorticoids? No. 6. Do you have rheumatoid arthritis? No. 7. Do you have secondary osteoporosis? No. 8. Do you drink 3 or more alcoholic drinks per day? No. 9. Are you being treated for osteoporosis? No. 10. Have you ever taken any of the following medications: Actonel, Evista, Fosamax, Miacalcin, Reclast, Boniva, Forteo, HRT (i.e. estrogen/hormone therapy), Protelos, Prolia, Vitamin D, Calcium, other ? please specify. ANSWER: No. 11. Do you have any of the following medical conditions: Anorexia or bulimia, asthma or emphysema, end stage renal disease, hyperparathyroidism, any seizure disorders, cancer, inflammatory bowel diseases, hysterectomy, other ? please specify. ANSWER: Yes, asthma, cancer. 12. What was your maximum height (inches)? 63. 13. Do you perform weight bearing exercise regularly? No. 14. Do you regularly consume dairy products? Yes. 15. Do you drink caffeinated beverages? Yes. 16. At what age did your period start? 14. 17. Are you premenopausal? No. 18. How many full term pregnancies have you had? 1. 19. Have you ever missed your period for more than 6 months in a row (not including or menopause)? Yes. TECHNIQUE: Bone mineral density study was performed using the [employer]. FINDINGS: The results of the study expressed as bone mineral density (BMD) are as follows: Lumbar spine L1 to L4: BMD: 1.294 g/cm2. T-score: 2.2. Z-score: 3.6. Neck Left: BMD: 0.967 g/cm2. T-score: 1.1. Z-score: 2.3. Right: BMD: 0.886 g/cm2. T-score: 0.3. Z-score: 1.6. Total Left: BMD: 1.098 g/cm2. T-score: 1.3. Z-score: 2.2. Right: BMD: 1.036 g/cm2. T-score: 0.8. Z-score: 1.6. IMPRESSION: Normal bone density. Filipe Harper M.D. Diagnostic Radiologist [email or web address] DSM/lancew: D& Transcribed: 2:15 pm DW/Dictated by: Filipe Harper MD @ 11/10/2023 8:40:00 AM Signed by:?Filipe Harper MD @11/10/2023 2:16:32 PM (Electronic Signature)
== END 2023-11-09 13:28 | disposition home or self-care (01) ==
LOC: RAD 13:28
PROVIDERS: PCP Physician Assistant; Visit Provider Internal Medicine Hematology & Oncology
DX: Z13.820 Encounter for screening for osteoporosis (principal); C50.919 Malignant neoplasm of unspecified site of unspecified female breast
CPT/HCPCS: 77080

== ENCOUNTER 2024-04-10 13:30 | Outpatient (RCR) | payer BC, SELFPAY ==
--- NOTE | 2023-10-20 14:55 | ONC.NURNOTE ---
Breast pathology from 10/[address] Manuel. Patient informed that Dr. Manuel is recommending Oncotype Dx testing. Oncotype testing requested online and consult appointment rescheduled to 11/02 to ensure that we will have results. Patient verbalizes understanding of plan.
--- NOTE | 2024-02-01 09:07 | ONC.NURNOTE ---
Call to patient to see how she is tolerating her anastrozole. She states she has intermittent hot spells at night but otherwise has no questions or concerns. Patient has scheduled follow up on 03/30.
== END 2024-04-30 23:59 | disposition home or self-care (01) ==
LOC: CCIC 13:30
PROVIDERS: PCP Physician Assistant; Visit Provider Physician Assistant
DX: C50.912 Malignant neoplasm of unspecified site of left female breast (principal); Z17.0 Estrogen receptor positive status [ER+]; Z79.811 Long term (current) use of aromatase inhibitors
CPT/HCPCS: 99202; 99205; 99214; 99215; G0463

== ENCOUNTER 2024-06-08 13:18 | Outpatient (CLI) | payer BC, SELFPAY ==
--- NOTE | 2024-06-08 13:20 | CRLHL7_ITS ---
For Patients: As a result of the Century Cures Act, medical imaging exams and procedure reports are released immediately into your electronic medical record. You may view this report before your referring provider. If you have questions, please contact your health care provider. BILATERAL SCREENING MAMMOGRAM WITH COMPUTER-AIDED DETECTION AND TOMOSYNTHESIS TECHNIQUE: CC and MLO views were obtained. These mammographic images have been obtained using full-field digital technique. These mammographic images were interpreted with the benefit of computer-aided detection. Breast Tomosynthesis was used in this interpretation. COMPARISON FILM: 08/20/23, 09/01/23. FINDINGS: The breasts are heterogeneously dense, which may obscure small masses. IMPRESSION: There is no radiographic evidence for malignancy. ASSESSMENT: BI-RADS Category 2: Benign RECOMMENDATION: Routine screening mammogram in 1 year. A lay language report of this examination will be provided to the patient. Fiilpe Harper M.D. Diagnostic Radiologist [email or web address] SP/Dictated by: Filipe Harper MD @ 06/09/2024 12:28:00 PM (Electronically Signed)
--- OUTSIDE RECORDS SUMMARY | 2024-06-08 13:20 | XMS_ITS | Referral Summary ---
Author Organization [facility] Address [address] [place] [address] Care Team Providers Care Clerical Grader Name Role Phone Unavailable Primary Care Provider Unavailabl e Source Comments Patient records contain information from all sites at [facility]. For routine questions regarding patient records, call [phone] during business hours, M-F 8:00 AM - 5:00 PM Central Time. Record requests for emergency care only can be directed to [phone] at any time.[facility] Allergies Active Allergy Reactions Criticality Noted Date Comments Mirabegron Angioedema High 10/12/2018 Medications Medication Sig Dispensed Refills Start Date End Date Status sulfacetamide sodium, acne, (KLARON) 10 % lotion (suspension) Apply topically at bedtime. 06/25/2023 Active chlorthalidone (HYGROTON) 50 mg tablet Take 1 tablet by mouth daily. 06/25/2023 Active potassium chloride (K-TAB) 20 mEq CR tablet Take 20 mEq by mouth. 06/29/2023 Active fluticasone propionate (FLONASE) 50 mcg/actuation nasal spray Administer 1 spray into nostril(s). 04/03/2015 Active mometasone (ELOCON) 0.1 % cream Apply 1 Application topically as directed. Apply to left breast twice daily starting on the 1st day of radiation treatment. Continue for 10 days following the completion of radiation treatment. 45 g 11/11/2023 Active mometasone (ELOCON) 0.1 % cream Apply 1 Application topically daily. Apply to the left breast as directed. 45 g 12/02/2023 Active Active Problems Problem Noted Date Diagnosed Date Malignant Neoplasm Of Breast Female Left 024 Cancer Staging:Pathologic stage from 10/12/2023:Stage IA(pT1b, pN0(sn), cM0, G2, ER+, NV+, HER2-, Oncotype DX score: 17) - Unsigned Immunizations Name Administration Dates Next Due HepB, Unspecified 04/12/1995,11/03/1994,10/06/18 95 Influenza, Seasonal, Injectable 06/13/1998,06/12,06/14/1996 MMR 12/24/1994,10/06/1994 Measles 1965 Td, (Adult) Unspecified 09/06/1990 Social History Tobacco Use Types Packs/Day Years Used Date Smoking Tobacco: Former Cigarettes 0.3 20 1 987 - 2007 Smokeless Tobacco: Never Tobacco Cessation:Counseling Given: Not Answered Alcohol Use Standard Drinks/Week Comments Yes 0 (1 standard drink = 0.6 oz pur e alcohol) Nutrition Answer Date Recorded Nutrition: EVOO Fat Source Unknown 11/02 Nutrition: Servings of Fruits/Vegetables per Day Not on file 11/02/2023 Dental Answer Date Recorded Dental: Regular Dentist Unknown 11/02/19 Sex and Gender Information Value Date Recorded Sex Assigned at Not on file Gender Identity Not on file Sexual Orientation Not on file Last Filed Vital Signs Vital Sign Reading Time Taken Comments Blood Pressure 137/88 11/11/2023 12:56 PM POWER LINEMAN Pulse 70 11/11/2023 12:56 PM POWER LINEMAN Temperature 36.8 ??C (98.2 ??F) 12/02/2023 11:36 AM C DT Respiratory Rate 16 01/27/2016 11:59 PM CDT Oxygen Saturation - - Inhaled Oxygen Concentration - - Weight 68.2 kg (150 lb 5.7 oz) 12/02/2023 11:36 AM CDT Height - - Body Mass Index - - Plan of Treatment Not on file Procedures Procedure Name Priority Date/Time Associated Diagnosis Comments OUTSIDE MG MAMMOGRAM Routine 10/12/2023 8:55 AM POWER LINEMAN from Last 3 Months or Most Recently Relevant to Health Maintenance Results * MM clip placement LT-Outside Mammogram (10/12/2023 8:55 AM POWER LINEMAN) Narrative IIGA - 11/03/2023 11:53 AM POWER LINEMAN This order has been created and auto-finalized to support the import of outside images. If available, original interpretation can be found on the Media Tab in Chart Review, in Document Viewer, or as an image in QREADS. If a re-interpretation or overread is required please follow defined workflow. ?? Provider Not In System IMG BI PROCEDURES IIMS NA from Last 3 Months or Most Recently Relevant to Health Maintenance
--- OUTSIDE RECORDS SUMMARY | 2024-06-08 13:20 | XMS_ITS ---
Author Organization [facility] Address [address] [place] [address] Care Team Providers Care Cleaner Housekeeping Name Role Phone Unavailable Unavailable Unavailable Surgery Details Not on file Complications Check Surgery Details section. Procedure Estimated Blood Loss Check Surgery Details section. Procedure Findings Check Surgery Details section. Procedure Specimens Taken Check Surgery Details section.
--- OUTSIDE RECORDS SUMMARY | 2024-06-08 13:20 | XMS_ITS ---
Author Organization [facility] Address [address] [place] [address] Care Team Providers Care Hogshead Mat Inspector Name Role Phone Unavailable Primary Care Provider Unavailabl e Active Problems Problem Noted Date Diagnosed Date Malignant Neoplasm Of Breast Female Left 024 Cancer Staging:Pathologic stage from 10/12/2023:Stage IA(pT1b, pN0(sn), cM0, G2, ER+, NM+, HER2-, Oncotype DX score: 17) - Unsigned Current Oncology Plans No current plan information found. Past Plans No past plan information found. Radiation Treatments * Plan Last Treated On Elapsed Days Fractions Treated Prescribed Fraction Dose Prescribed Total Dose [id number] 12/02/2023 10 4 of 4 250 cGy 1,000 cGy [id number] 11/26/2023 4 5 of 5 520 cGy 2,600 cGy Reference Point Last Treated On Elapsed Days Session Dose Total Dose [id number] 12/02/2023 10 250 cGy 3,600 cGy
--- OUTSIDE RECORDS SUMMARY | 2024-06-08 13:20 | XMS_ITS | Clinical Summary ---
Author Organization [facility] Address [address] [place] [address] Care Team Providers Care Intake Specialist Name Role Phone Unavailable Primary Care Provider Unavailabl e Source Comments Patient records contain information from all sites at [facility]. For routine questions regarding patient records, call [phone] during business hours, M-F 8:00 AM - 5:00 PM Central Time. Record requests for emergency care only can be directed to [phone] at any time.[facility] Allergies Active Allergy Reactions Criticality Noted Date [...] from 10/12/2023:Stage IA(pT1b, pN0(sn), cM0, G2, ER+, [place]+, HER2-, Oncotype DX score: 17) - Unsigned Immunizations Name Administration Dates Next Due HepB, Unspecified 04/12/1995,11/03/1994,10/06/18 95 Influenza, Seasonal, Injectable 06/13/1998,06/12,06/14/1996 MMR 12/24/1994,10/06/1994 Measles 1965 Td, (Adult) Unspecified 09/06/1990 Family History Medical History Relation Name Comments Alzheimer's disease Father Bladder cancer Mother Lung cancer Mother Relation Name Status Comments Father Mother Social History Tobacco Use Types Packs/Day Years [...] Date Recorded Dental: Regular Dentist Unknown 11/02/19 24 Sex and Gender Information Value Date Recorded Sex Assigned at Not on file Gender Identity Not on file Sexual Orientation Not on file Last Filed Vital Signs Vital Sign Reading Time Taken Comments Blood Pressure 137/88 11/11/2023 12:56 PM DRAW HAND Pulse 70 11/11/2023 12:56 PM DRAW HAND Temperature 36.8 ??C (98.2 ??F) 12/02/2023 11:36 AM C DT Respiratory Rate 16 01/27/2016 11:59 PM CDT Oxygen Saturation - - Inhaled Oxygen Concentration - - Weight 68.2 kg (150 lb 5.7 oz) 12/02/2023 11:36 AM CDT Height - - Body Mass Index - - Plan of Treatment Health Maintenance Due Date Last Done Comments CT Colonography 1965 Cervical Cancer Screening 1965 Cologuard 1965 HIV Screening 1965 Hepatitis C Screening 1965 Depression Screening (Annual PHQ-2) 09/06/2023 COVID-19 Vaccine ( season) 2024 06/12/2022, 09/15/2021, 01/22/2021, Additional history exists DTaP,Tdap,and Td Vaccines (2 - Td or Tdap) 05/29/2024 05/29/2014, 08/02/2007, 09/06/1990 Influenza Vaccine (#1) 2024 , 06/12/2022, 06/11/2021, Additional history exists Mammogram 10/12/2024 10/12/2023, 02/0 02/2024, 09/10/2023, Additional history exists Fasting Glucose for Diabetes Screening 10/04/2026 10/04/2023, 07/28/2023, 06/25/2023, Additional history exists Colonoscopy 05/07/2028 05/07/2023 Colorectal Cancer Surveillance 05/07/2028 Lipid (Cholesterol) Screening 06/25/2028 06/25/2023, 06/12/2022, 06/11/2021, Additional history exists Hepatitis B Vaccines Completed 04/12/1995, 11/03/1994, 10/06/1994 Zoster Vaccines Completed 06/27/2019, 03/24/2019 Pneumococcal vaccine (0-64 years) Completed 06/12/2022 HPV Vaccines Aged Out No longer eligi ble based on patient's age to complete this topic Procedures Procedure Name Priority Date/Time Associated Diagnosis Comments OUTSIDE MG MAMMOGRAM Routine 10/12/2023 8:55 AM DRAW HAND from Last 3 Months or Most Recently Relevant to Health Maintenance Results * MM clip placement LT-Outside Mammogram (10/12/2023 8:55 AM DRAW HAND) Narrative IIMS - 11/03/2023 11:53 AM DRAW HAND This order has been created and auto-finalized [...]
--- OUTSIDE RECORDS SUMMARY | 2024-06-08 13:21 | XMS_ITS | Clinical Summary ---
Author Organization [facility] Address [place], [place] [address] Care Team Providers Care Night Clerk Name Role Phone Yane Cline Primary Care Provider [phone] Allergies Active Allergy Reactions Criticality Noted Date Comments Chlorpheniramine-Phenylpropan Runny Nose,Itching 03/24/2019 Mirabegron Angioedema High 10/12/2018 Medications Medication Sig Dispensed Refills Start Date End Date Status fluticasone (50 mcg per actuation) nasal solution (FLONASE)Indicatio ns:Seasonal allergies Inhale 1 [place] into both nostrils once daily. Non-alcohol based 1 Bottle 3 04/03/2015 Active cetirizine (ZYRTEC) 10 mg tabletIndications: Seasonal allergic rhinitis, unspecified chronicity, unspecified trigger Take 1 tablet by mouth once daily. 90 tablet 1 10/13/2017 Active erythromycin ophthalmic ointment 0.5% 06/16/2022 Active Xiidra 5 % dpet 06/17/2022 Active metroNIDAZOLE (METROGEL) 0.75 % gelIndications:Ros acea Apply topically to affected area(s) two times daily. 45 g 3 06/25/2023 Active sulfacetamide, acne, 10 % suspIndications:Ro sacea Apply topically to affected area(s) at bedtime. 118 mL 5 06/25/2023 Active carbamide peroxide (DEBROX) 6.5 % otic solutionIndication s:Bilateral impacted cerumen Place 5 Drops into both ears two times daily. 15 mL 06/25/2023 Active potassium chloride (K-TAB) 20 mEq extended-release tabletIndications: Hypokalemia Take 1 Tablet (20 mEq) by mouth once daily with a meal. 90 Tablet 3 06/29/2023 Active albuterol HFA (PRO-AIR; VENTOLIN; PROVENTIL) 90 mcg/actuation inhalerIndications :Mild intermittent asthma without complication Inhale 1 to 2 puffs by mouth every 4 hours if needed for shortness of breath. 8.5 g 10 05/29/2024 Active chlorthalidone (HYGROTON) 50 mg tabletIndications: HTN (hypertension) Take 1 tablet by mouth once daily. 90 Tablet 06/07/2024 Active chlorthalidone (HYGROTON) 50 mg tabletIndications: HTN (hypertension) Take 1 Tablet (50 mg) by mouth once daily. 90 Tablet 3 06/25/2023 4 Discontinued albuterol HFA (PRO-AIR; VENTOLIN; PROVENTIL) 90 mcg/actuation inhalerIndications :Mild intermittent asthma without complication Inhale 1-2 Puffs by mouth every 4 hours if needed for Shortness Of Breath. 18 g 11 08/25/2023 4 Discontinued Active Problems Problem Noted Date Diagnosed Date Prediabetes 06/29/2023 Mixed hyperlipidemia 06/29/2023 Adenomatous colon polyp 02/21/2018 Overview (05/12/2023): Colonoscopy 02/2018 polyp, repeat in 5 years Colonoscopy 05/2023 TA, repeat in 7 years Mixed urge and stress incontinence 09/18/2015 Allergic rhinitis, cause unspecified 06/22/2006 Unspecified asthma(493.90) 06/22/2006 Rosacea 06/22/2006 Vitamin D deficiency Urinary, incontinence, stress female Hypertension Anemia Iron deficiency Uterine fibroid Overview (03/15/2013): 12 cm Dry eyes Encounters Date Type Department Care Team Description 06/04/2024 Refill [facility] [address] [place] [address] Yane Cline PA Refill Request (Chlorthalidone) 05/26/2024 Refill [facility] [address] [place] [address] Yane Cline PA Refill Request (Albuterol Hfa) from Last 3 Months Immunizations Name Administration Dates Next Due COVID-19 vaccine (Secret Recipe-Bio NTech 30mcg/0.3mL) 12YO+ BIVALENT PF, MDV 06/12/2022 [...] Outcome GA Total Labor Labor/2nd/3rd Weight Sex Type Anes PTL Harmony A1 A5 Name Clin 04/11/20 03 Vag Comments:twins Last Filed Vital Signs Vital Sign Reading Time Taken Comments Blood Pressure 129/87 11/01/2023 3:57 PM TECHNICAL LEAD tow er Pulse 73 11/01/2023 3:57 PM TECHNICAL LEAD Temperature 36.9 ??C (98.5 ??F) 06/25/2023 2:24 PM CD T Respiratory Rate 16 05/06/2023 12:3 2 PM CDT Oxygen Saturation 98% 11/01/2023 3:57 PM TECHNICAL LEAD Inhaled Oxygen Concentration - - Weight 69.3 kg (152 lb 11.2 oz) 11/01/2023 3:57 PM TECHNICAL LEAD Height 159 cm (5' 2.6) 10/04/2023 11:0 8 AM TECHNICAL LEAD Body Mass Index 27.4 10/04/2023 11:08 AM TECHNICAL LEAD Plan of Treatment Health Maintenance Due Date Last Done Comments COVID-19 vaccine series ( season) 2024 06/12/2022, 09/15/2021, 01/22/2021, Additional history exists Influenza for age 50-64 05/07/2024 06/25/20, 06/12/2022, 06/11/2021, Additional history exists Tetanus booster 05/29/2024 05/29/2014, 07/08, 09/06/1990 Depression screening for age 12+ 06/28/2024 06/28/2023, 06/25/2023, 06/12/2022, Additional history exists BMI (ht and wt on same day) for age 18+ 10/04/2024 10/04/2023, 06/25/2023, 06/12/2022, Additional history exists Mammogram for age 45-75 10/12/2024 10/12/19 24, 09/01/2023, 08/20/2023, Additional history exists Pap test for age 21-65 05/29/2025 0, 05/29/2020, 05/05/2017, Additional history exists Lipids for age 45-75 06/25/2028 06/25/2023, 06/12/2022, 06/11/2021, Additional history exists Colonoscopy through age 75 05/07/203005/07, 05/06/2023, 02/18/2018, Additional history exists Hepatitis C screening for age 18-79 Completed 03/15/2014 Tdap Completed 05/29/2014 Zoster (shingles) series for age 50+ Completed 06/27/2019, 03/24/2019 Pneumococcal series for age 6-64 Aged Out 06/12/2022 No longer eligible based on patient's age to complete this topic HIV for age 15-65 Completed 06/25/2023 Procedures Procedure Name Priority Date/Time Associated Diagnosis Comments SCAN-MAMMOGRAPHY REPORT 10/12/2023 12:00 AM TECHNICAL LEAD ANTI HIV 1/2 Routine 06/25/2023 3:07 PM CDT Screening for HIV (human immunodeficiency virus) LIPID PANEL W REFLEX MEASURED LDL Routine 06/25/2023 3:07 PM CDT Screening cholesterol level COLONOSCOPY 05/07/2023 12:12 PM CDT NET FISHER THIN PREP PAP SCREEN IMAGED Routine 05/29/2020 9:52 AM CDT Screening for cervical cancer ANTI HCV Routine 03/15/2014 9:49 AM CDT Need for hepatitis C screening test from Last 3 Months or Most Recently Relevant to Health Maintenance Results * SCAN-MAMMOGRAPHY REPORT (10/12/2023 12:00 AM TECHNICAL LEAD) Anatomical Region Laterality Modality Other Scanner OTHER * (ABNORMAL) LIPID PANEL W REFLEX MEASURED LDL (06/25/2023 3:07 PM CDT) CHOLESTEROL,TOTAL 223(H) 100 - 199 mg/dL 06/25/2023 8:53 PM CDT [facility] Comment: Cholesterol, Total Reference Ranges Desirable <200 mg/dL Borderline 200-239 mg/dL High >=240 mg/dL TRIGLYCERIDES 122 <150 mg/dL 06/25/2023 8:53 PM CDT [facility] HDL CHOLESTEROL 58 >40 mg/dL 8:53 PM CDT [facility] NON-HDL CHOLESTEROL 165(H) <145 mg/dl 06/25/2023 8:53 PM CDT [facility] CHOL/HDL RATIO 3.84 <4.50 06/25/2023 8:53 PM CDT [facility] LDL CHOLESTEROL 141(H) <=130 mg/dL 06/25/2023 8:53 PM CDT [facility] VLDL CHOLESTEROL 24 <=30 mg/dL 06/25/2023 8:53 PM CDT [facility] PROVIDER ORDERED STATUS RANDOM 06/25/2023 8:53 PM CDT [facility] Blood BLOOD SPECIMEN / Unknown Venipuncture / Unknown 06/25/2023 3:07 PM CDT 06/25/2023 3:08 PM CDT Yane CALVO CHEMISTRY [facility] [address] [place] [address], * ANTI HIV 1/2 (06/25/2023 3:07 PM CDT) HIV-1/HIV-2 SCREEN Non-Reacti ve Non-Reacti ve 06/25/2023 8:41 PM CDT [facility] Comment:HIV-1 p24 and HIV-1/ HIV-2 Ab Not Detected. Blood BLOOD SPECIMEN / Unknown Venipuncture / Unknown 06/25/2023 3:07 PM CDT 06/25/2023 3:08 PM CDT Yane CALVO SEND OUTS [facility] [address] [place] [address], * COLONOSCOPY (05/07/2023 12:12 PM CDT) 05/07/2023 12:1 2 PM CDT Narrative Transcriptions Marty Jorgensen MD - 05/07/2023 12:17 PM CDT Patient Name: Rubi Sandoval Procedure Date: 05/07/2023 Gender: Female Date of : 1965 Admit Type: Outpatient Procedure: Colonoscopy Proceduralist: Marty Jorgensen MD Indications/Pre-Op Diagnosis: High risk colon cancer surveillance:Personal history of colonic polyps, Last colonoscopy: February 2018 Medications: Fentanyl 100 micrograms IV, Midazolam 4 mgIV, The level of sedation administered wasmoderate Procedure Description: The patient had risks, benefits and alternatives explained to andgave informed consent. The patient had a stable cardiopulmonary status and judged an adequate candidate for conscious sedation. The endoscope [id number]-H190L [id number] was passed through the anus andadvanced to the cecum, identified by appendiceal orifice and ileocecal valve.The colonoscopy was performed without difficulty. The patient toleratedthe procedure well. The quality of the bowel preparation was good. The ileocecal valve, appendiceal orifice, and rectum were photographed.No picture were stored due to a computer malfunction. Complications: No immediate complications. Estimated Blood Loss & Specimen: Estimated blood loss: none. Specimen collected - Yes and sent to Laboratory Findings: The perianal and digital rectal examinations were normal. A 3 mm polyp was found in the descending colon. The polyp wassessile. The polyp was removed with a cold snare. Resection and retrieval were complete. The exam was otherwise without abnormality. Impressions/Post-Op Diagnosis: - One 3 mm polyp in the descending colon, removed with a cold snare. Resected and retrieved. - The examination was otherwise normal. Recommendation: - Patient has a contact number available for emergencies. The signsand symptoms of potential delayed complications were discussed with the patient. Return to normal activities tomorrow. Written discharge instructions were provided to the patient. - Resume previous diet. - Continue present medications. - Await pathology results. - Repeat colonoscopy is recommended. The colonoscopy date will be determined after pathology results from today's exam become available for review. Moderate Sedation: A time out was performed before the procedure. Moderate (conscious) sedation was administered by the endoscopy nurse and supervised bythe endoscopist. The following parameters were monitored: oxygensaturation, heart rate, blood pressure, EKG, CO2, respiratory rate, adequacy of pulmonary ventilation and reponse to care. Please refer to the patient's medical record flowsheets and nursing notes for moderate sedation details. Total physician intraservice time was 21 minutes. Marty Jorgensen MD 05/07/2023 12:17:27 PM This report has been signed electronically. Note Initiated On: 05/07/2023 12:12 PM Procedure Code(s): --- Professional --- 98353, Colonoscopy, flexible; with removalof tumor(s), polyp(s), or other lesion(s) bysnare technique Diagnosis Code(s): --- Professional --- Z86.010, Personal history of colonicpolyps D12.4, Benign neoplasm of descending colon CPT copyright 2021 [employer]. All rights reserved. The codes documented in this report are preliminary and upon pupil personnel services director reviewmay be revised to meet current compliance requirements. Marty Jorgensen MD PROCEDURE ORD * NET FISHER THIN PREP PAP SCREEN IMAGED [[id number]] (05/29/2020 9:52 AM CDT) Case Report Gynecologic Cytology Report ? Case: [id number] ? Authorizing Provider: ??Adonis Jarvis MD ?? Collected: ? 05/29/2020 0952 ? Ordering Location: ? [facility] ? Received: ?05/29/2020 1026 ? [facility] ? First Screen: ?Lucretia Evans ? Specimen: ?NET FISHER ThinPrep Vial Screening, Cervical ? 06/05/2020 3:54 PM CDT [facility] INTERPRETATION/ RESULT NEGATIVE FOR INTRAEPITHELIAL LESION OR MALIGNANCY (NIL) (none) 06/05/2020 3:54 PM CDT [facility] IMEN ADEQUACY Satisfactory for evaluation No endocervical component seen 06/05/2020 3:54 PM CDT [facility] HPV REQUEST HPV and PAP 06/05/2020 3:54 PM CDT [facility] Date of LMP 09/201806/05/2020 3:54 PM CDT [facility] Last Pap Date 05/05/17 06/05/2020 3:54 PM CDT [facility] Last Pap Result NIL 0 3:54 PM CDT [facility] Abnormal Pap or [place] Bx in last 5 years No 06/05/2020 3:54 PM CDT [facility] Menstrual Status Postmenopausal 06/05/2020 3:54 PM CDT [facility] [place] Bx Done Today No 06/05/2020 3:54 PM CDT [facility] Additional Information None given 06/05/2020 3:54 PM CDT [facility] Comment: Cytology is screened at [facility] - [address], [place] [address] and [facility] - [address], [place] [address] and [facility] - [address] [place] [address] Interpreted at [facility] - [address], [place] [address] Automated Review Successful 06/05/2020 3:54 PM CDT [facility] Comment:Specimen processed s uccessfully by automated dental cream maker device, ThinPrep Imaging System, [employer] ANCILLARY TESTING NET FISHER HPV Ordered, Please see separate report 06/05/2020 3:54 PM CDT [facility] Note The pap test is a screening technique, not a diagnostic procedure. It is used primarily to screen for squamous cancers and precursor lesions. Published studies have shown that it is subject to both false negative and false positive results. The pap test should not be used as the sole means to diagnose or exclude pre-malignant and malignant lesions. 06/05/2020 3:54 PM CDT [facility] Other (Cervical) Non-Blood / Unknown 05/29/2020 9:52 AM CDT 05/29/2020 10:26 AM CDT Adonis Jarvis MD PATHOLOGY/CYTOLOG Y [facility] [address] [place] [address], * ANTI HCV (03/15/2014 9:49 AM CDT) HEPATITIS C ANTIBODY Non-Reacti ve Non-Reacti ve 03/15/2014 4:49 PM CDT [facility] Blood specimen (specimen) BLOOD SPECIMEN / Unknown Venipuncture / Unknown 03/15/2014 9:49 AM CDT 03/15/2014 9:49 AM CDT Narrative [facility] - 03/15/2014 4:49 PM CDT Antibodies to HCV not detected; does not exclude the possibility of exposure to HCV. Price Cervantes MD SEND OUTS Performing Organization Address [facility] Co de Phone Number [facility] [address] [place] [address], from Last 3 Months or Most Recently Relevant to Health Maintenance Advance Directives * Full Code (Latest Code Status on File) Date Activated Date Inactivated Comments 06/05/2014 11:41 AM 06/06/2014 2:15 PM * Full Code Date Activated Date Inactivated Comments 06/05/2014 6:36 AM 06/05/2014 11:41 AM Care Teams Night Clerk Relationship Specialty Start Date End Date Yane Cline [place] [address] PCP - General Physician Solvent Plant Treater 09/16/23
== END 2024-06-08 13:19 | disposition home or self-care (01) ==
LOC: MAMMO 13:19
PROVIDERS: PCP Physician Assistant; Visit Provider Physician Assistant
DX: Z12.31 Encounter for screening mammogram for malignant neoplasm of breast (principal); R92.333 Mammographic heterogeneous density, bilateral breasts
CPT/HCPCS: 77063; 77067

== ENCOUNTER 2024-09-08 14:00 | Outpatient (RCR) | payer BC, SELFPAY | END 2024-09-08 14:56 | disposition home or self-care (01) | PROVIDERS: Visit Provider Surgery | DX: I89.0 Lymphedema, not elsewhere classified (principal); Z51.89 Encounter for other specified aftercare | CPT/HCPCS: 97110; 97140; 97161; 97164; 97165; 97535 ==

== ENCOUNTER 2024-10-09 14:30 | Outpatient (RCR) | payer BC, SELFPAY | END 2024-11-11 23:59 | disposition home or self-care (01) | LOC: CCIC 14:30 | PROVIDERS: PCP Physician Assistant; Visit Provider Internal Medicine Hematology & Oncology | DX: C50.912 Malignant neoplasm of unspecified site of left female breast (principal); Z17.0 Estrogen receptor positive status [ER+]; N61.0 Mastitis without abscess; I89.0 Lymphedema, not elsewhere classified; Z79.811 Long term (current) use of aromatase inhibitors | CPT/HCPCS: 99214; G0463 ==

== ENCOUNTER 2025-02-12 14:03 | Outpatient (RCR) | payer BC, SELFPAY | END 2025-08-11 23:59 | disposition home or self-care (01) | LOC: CCIC 14:03 | PROVIDERS: PCP Physician Assistant; Visit Provider Physician Assistant | DX: C50.912 Malignant neoplasm of unspecified site of left female breast (principal); Z17.0 Estrogen receptor positive status [ER+]; Z79.811 Long term (current) use of aromatase inhibitors | CPT/HCPCS: 99214; G0463 ==

== ENCOUNTER 2025-06-18 13:57 | Outpatient (CLI) | payer BC, SELFPAY ==
--- NOTE | 2025-06-18 14:00 | CRLHL7_ITS ---
For Patients: As a result of the Century Cures Act, medical imaging exams and procedure reports are released immediately into your electronic medical record. You may view this report before your referring provider. If you have questions, please contact your health care provider. INDICATION: BILATERAL SCREENING MAMMOGRAM, ASYMPTOMATIC 60 Y/O FEMALE COMPARISON: 06/08/2024, 08/22/2023, 08/20/2023 TECHNIQUE: Digital mammogram in CC and MLO projections including computer-aided detection (CAD) and tomosynthesis. BREAST COMPOSITION: There are scattered areas of fibroglandular density. FINDINGS: No suspicious findings. There are post-surgical changes of the left breast. ASSESSMENT: BI-RADS 2 Benign RECOMMENDATION: Annual screening mammogram. A lay language report of this examination will be provided to the patient. Dictated by: Kelley Maxwell MD @ 06/19/2025 18:31:22 (Electronically Signed)
== END 2025-06-18 13:58 | disposition home or self-care (01) ==
LOC: MAMMO 13:57
PROVIDERS: PCP Physician Assistant; Visit Provider Physician Assistant
DX: Z12.31 Encounter for screening mammogram for malignant neoplasm of breast (principal)
CPT/HCPCS: 77063; 77067